=== PATIENT | male | born 1965 | race Caucasian/White ===

== ENCOUNTER 2023-02-16 16:11 | Emergency (ER) | payer MEDICAID ==
[~2023-02-16] VITALS: Ht 182.9 cm; Wt 68.2 kg
[~2023-02-16 16:11] MED LIST: RANI-648 PO
[2023-02-16 16:14] VITALS: BP 120/76; PULSE 67; RESP 18; TEMP 97.9; O2SAT 99
--- NOTE | 2023-02-16 16:29 | NUR ---
Incident reported to [facility] dispatch. Officer being sent out to speak with patient. no case number given
--- NOTE | 2023-02-16 17:10 | NUR ---
[facility] log number [id number]
[2023-02-16] MEDS ORDERED: bacitracin 15gm ointment TP ONE (17:15)
[2023-02-16] MEDS ORDERED: TETanus/Pertussis (Acell)/Diphther VAC/PF (Tdap-Adult) 0.5ml syringe IMVAC ONE (17:15)
[2023-02-16 17:23] LABS: ALBUMIN 3.5 G/DL (3.4-5.0); ANION GAP 7 (8-16); BLOOD UREA NITROGEN 21 MG/DL (7-18); BUN/CREATININE RATIO 16.9 (10.0-20.0); CALCIUM 9.3 MG/DL (8.5-10.1); CHLORIDE 104 MMOL/L (99-107); CREATININE 1.24 MG/DL (0.60-1.10); GLUCOSE 94 MG/DL (70-104); INR 1.1 INR; POTASSIUM 3.8 MMOL/L (3.5-5.1); PROTHROMBIN TIME 11.3 SECONDS (9.0-12.0); SODIUM 141 MMOL/L (135-145); eCRCL 65 ML/MIN; eGFR 61 ML/MIN
[2023-02-16 17:28] LABS: BASOPHILS # (AUTO) 0.1 X10'3 (0-0.2); EOSINOPHILS # (AUTO) 0.3 X10'3 (0-0.9); EOSINOPHILS % (AUTO) 4.8 % (0-6); HEMATOCRIT 42.2 % (42.0-52.0); HEMOGLOBIN 14.4 g/dl (14.0-17.9); LYMPHOCYTES % (AUTO) 18.7 % (21-51); MEAN CORPUSCULAR HEMOGLOBIN 30.7 PG (27.0-31.0); MEAN CORPUSCULAR HGB CONC 34.2 g/dL (33.0-36.5); MEAN CORPUSCULAR VOLUME 89.8 FL (78-98); MEAN PLATELET VOLUME 11.4 FL (7.4-10.4); MONOCYTES # (AUTO) 0.6 X10'3 (0-0.9); MONOCYTES % (AUTO) 11.9 % (2-12); NEUTROPHILS # (AUTO) 3.4 X10'3 (1.8-7.7); NEUTROPHILS % (AUTO) 63.6 % (42-75); PLATELET ESTIMATE DECREASED; RED CELL DISTRIBUTION WIDTH 14.9 % (11.5-14.5); WHITE BLOOD COUNT 5.4 X10'3 (4.5-11.0)
[2023-02-16 17:29] LABS: LARGE PLATELETS MODERATE; POIKILOCYTOSIS FEW
[2023-02-16 17:33] LABS: PLATELET COUNT 11 X10'3 (140-440)
== END 2023-02-16 18:34 | disposition home or self-care (01) ==
LOC: ER 16:12
DX: S06.0X9A Concussion with loss of consciousness of unspecified duration, initial encounter (principal); S50.812A Abrasion of left forearm, initial encounter; S00.83XA Contusion of other part of head, initial encounter; F15.90 Other stimulant use, unspecified, uncomplicated; Z88.8 Allergy status to other drugs, medicaments and biological substances; V89.2XXA Person injured in unspecified motor-vehicle accident, traffic, initial encounter; Y93.89 Activity, other specified; Y92.89 Other specified places as the place of occurrence of the external cause; Y99.8 Other external cause status
CPT/HCPCS: 36415; 70450; 80048; 85008; 85025; 85610; 90471; 90715; 99285

== ENCOUNTER 2023-05-04 13:29 | Inpatient (IN) | payer MEDICAID ==
[~2023-05-04] VITALS: Ht 182.9 cm; Wt 68.0 kg
[2023-05-04] MEDS ORDERED: normal saline 1000ML IV soln IVB ONE (14:40)
[2023-05-04 14:57] LABS: INR 1.1 INR; PROTHROMBIN TIME 11.8 SECONDS (9.0-12.0)
[2023-05-04] MEDS ORDERED: ringers solution, lacted 1,000 ML IV ONE ×2 (15:05→15:25)
[2023-05-04] MEDS ORDERED: CefTRIAXone 2gm/D5W 50ml BAG 50 ML IV ONE (15:05)
[2023-05-04] MEDS ORDERED: azithromycin/NS 500mg/250ml 250 ML IV ONE (15:05)
[2023-05-04 15:08] LABS: ALANINE AMINOTRANSFERASE 28 U/L (12-78); ALBUMIN 2.8 G/DL (3.4-5.0); ALBUMIN/GLOBULIN RATIO 0.6 (1.1-1.5); ALKALINE PHOSPHATASE 71 IU/L (46-116); ANION GAP 8 (8-16); ASPARTATE AMINO TRANSFERASE 27 U/L (10-37); BILIRUBIN,TOTAL 1.3 MG/DL (0.1-1.0); BLOOD UREA NITROGEN 51 MG/DL (7-18); BUN/CREATININE RATIO 25.2 (10.0-20.0); CALCIUM 9.7 MG/DL (8.5-10.1); CHLORIDE 89 MMOL/L (99-107); CREATININE 2.02 MG/DL (0.60-1.10); GLUCOSE 99 MG/DL (70-104); POTASSIUM 4.6 MMOL/L (3.5-5.1); SODIUM 124 MMOL/L (135-145); TOTAL CARBON DIOXIDE 27.4 MMOL/L (24-32); TOTAL PROTEIN 7.6 G/DL (6.4-8.2); eCRCL 40 ML/MIN; eGFR 34 ML/MIN
[2023-05-04 15:15] LABS: PRO BRAIN NATRIURETIC PEPTIDE 982 PG/ML (0-125)
[2023-05-04] MEDS ORDERED: iohexol 350MG/ML 100ml bottle IV ONE (15:16)
[2023-05-04] MEDS ORDERED: MEROPENEM 1GM/NS 100ML IVPB 100 ML IV ONE (15:45)
[2023-05-04] MEDS ORDERED: ondansetron/PF 4mg/2ml inj IV ONE (15:55)
[2023-05-04 16:04] LABS: BILIRUBIN,URINE SMALL (Neg); CLARITY,URINE CLEAR (Clear); GLUCOSE, URINE NEGATIVE (Neg); KETONES,URINE NEGATIVE (Neg); LEUKOCYTE ESTERASE ,URINE NEGATIVE (Neg); NITRITES, URINE NEGATIVE (Neg); OCCULT BLOOD,URINE SMALL (Neg); PROTEIN,URINE 30 mg/dl (Neg)
[2023-05-04 16:11] LABS: COLOR,URINE ORANGE (Yellow); UA COLLECTION TYPE FOLEY CATH
[2023-05-04 16:13] LABS: URINE AMPHETAMINE SCREEN POSITIVE (Neg); URINE BARBITUATE SCREEN NEGATIVE (Neg); URINE BENZODIAZEPINES SCREEN NEGATIVE (Neg); URINE CANNABINOID SCREEN NEGATIVE (Neg); URINE COCAINE SCREEN NEGATIVE (Neg); URINE METHADONE SCREEN NEGATIVE (Neg); URINE OPIATE SCREEN NEGATIVE (Neg); URINE PHENCYCLIDINE SCREEN NEGATIVE (Neg)
[2023-05-04 16:18] LABS: BACTERIA,URINE FEW /HPF (Neg); FINE GRANULAR CAST 0-3 /LPF (NEGATIVE); HYALINE CASTS 0-3 /LPF (NEGATIVE); MUCUS STRANDS MODERATE /LPF (Neg); SQUAMOUS EPITHELIAL CELL,UR MODERATE /LPF (FEW); WBC,URINE 0-4 /HPF (0-4)
[2023-05-04 16:20] LABS: COARSE GRANULAR CAST 0-3 /LPF (NEGATIVE)
[2023-05-04 16:32] LABS: EOSINOPHILS % (AUTO) 0 % (0-6); MEAN CORPUSCULAR HEMOGLOBIN 30.2 PG (27.0-31.0); MONOCYTES # (AUTO) 0.6 X10'3 (0-0.9); NEUTROPHILS # (AUTO) 18.3 X10'3 (1.8-7.7)
[2023-05-04 16:33] LABS: BASOPHILS % (AUTO) 0.1 % (0-1); HEMATOCRIT 38.7 % (42.0-52.0); HEMOGLOBIN 13.2 g/dl (14.0-17.9); LYMPHOCYTES # (AUTO) 0.3 X10'3 (1.1-4.8); LYMPHOCYTES % (AUTO) 1.7 % (21-51); MEAN CORPUSCULAR VOLUME 89.1 FL (78-98); MEAN PLATELET VOLUME 11.6 FL (7.4-10.4); NEUTROPHILS % (AUTO) 95.2 % (42-75); RED BLOOD COUNT 4.35 X10'6 (4.70-6.10); WHITE BLOOD COUNT 19.2 X10'3 (4.5-11.0)
[2023-05-04 16:42] LABS: APTT 39 SECONDS (22-32)
[2023-05-04 16:47] LABS: MAGNESIUM 1.6 MG/DL (1.5-2.4)
[2023-05-04 17:04] LABS: GIANT PLATELET FEW; LARGE PLATELETS MODERATE; PLATELET ESTIMATE DECREASED; TOTAL CELLS COUNTED 100
[2023-05-04 17:07] LABS: BURR CELLS 1+
--- NOTE | 2023-05-04 17:37 | NUR ---
Pt has bruising extensive bruising to tongue, reports biting in sleep
[2023-05-04] MEDS ORDERED: magnesium 2GM in 50ml NS 50 ML IV PRN (17:50)
[2023-05-04] MEDS ORDERED: normal saline 1000ml 1,000 ML IV ONE ×2 (17:50)
[2023-05-04] MEDS ORDERED: magnesium 4gm in 100ml NS 100 ML IV PRN (17:50)
[2023-05-04] MEDS ORDERED: acetaminophen 650mg rectal suppository RC PRN (17:50)
[2023-05-04] MEDS ORDERED: acetaminophen 325mg tablet PO PRN ×2 (17:50)
[2023-05-04] MEDS ORDERED: bisacodyl 10mg suppository rectal RC PRN (17:50)
[2023-05-04] MEDS ORDERED: morphine 2 MG/ML inj. syringe IV PRN ×2 (17:50)
[2023-05-04] MEDS ORDERED: potassium Cl 40MEQ/1/2NS 520ml 520 ML IV PRN (17:50)
[2023-05-04] MEDS ORDERED: ondansetron/PF 4mg/2ml inj IV PRN (17:50)
[2023-05-04] MEDS ORDERED: mag hydrox/Alum hydrox/simeth 30ml oral suspension PO PRN (17:50)
[2023-05-04] MEDS ORDERED: nicotine 14mg patch - 24hr TD SCH (18:35)
[2023-05-04] MEDS ORDERED: pantoprazole 40mg Tablet.DR PO ONE (19:00)
[2023-05-04] MEDS ORDERED: vancomycin 1,750 MG in NS 350ml IV soln IV ONE (19:10)
--- NOTE | 2023-05-04 19:26 | NUR ---
Discussed with patient that provider has ordered FFP due to platelets 11. Patient requests platelets be hand counted prior to agreement to FFP transfusion. Verbalized understanding. Called and spoke with Lacho in lab who agreed to count. Patient notified, verbalized understanding.
[2023-05-04 19:54] LABS: CREATINE KINASE 139 U/L (39-308)
[2023-05-04] MEDS: K and/or MAG REPLACEMENT MC SCH (20:00)
[2023-05-04] MEDS ORDERED: VANCOmycin 1250MG/NS 250ml Bag 250 ML IV SCH (20:00)
[2023-05-04] MEDS: docusate sod 100mg capsule PO SCH (20:00)
--- NOTE | 2023-05-04 20:10 | NUR ---
Discussed FFP infusion with patient after manual count of 27.5, patient states he feels comfortable with his platelets at this level (this is his baseline) and is refusing FFP transfusion. Called and updated Dr. De La Cruz, verbalized understanding.
--- NOTE | 2023-05-04 22:37 | NUR ---
Pt does not have a diet in and is requesting food. notified new order for reg diet ordered.
[2023-05-05] MEDS ORDERED: piperacillin/tazo 3.375gm/50ml 50 ML IV SCH
[2023-05-05 03:44] LABS: EOSINOPHILS # (AUTO) 0.1 X10'3 (0-0.9); HEMOGLOBIN 13.6 g/dl (14.0-17.9); MEAN CORPUSCULAR HEMOGLOBIN 30.1 PG (27.0-31.0); MEAN CORPUSCULAR HGB CONC 33.7 g/dL (33.0-36.5); MONOCYTES # (AUTO) 0.6 X10'3 (0-0.9); NEUTROPHILS # (AUTO) 15.7 X10'3 (1.8-7.7); RED BLOOD COUNT 4.51 X10'6 (4.70-6.10); WHITE BLOOD COUNT 16.7 X10'3 (4.5-11.0)
[2023-05-05 03:45] LABS: BASOPHILS % (AUTO) 0 % (0-1); EOSINOPHILS % (AUTO) 0.4 % (0-6); HEMATOCRIT 40.2 % (42.0-52.0); LYMPHOCYTES # (AUTO) 0.4 X10'3 (1.1-4.8); LYMPHOCYTES % (AUTO) 2.2 % (21-51); MEAN CORPUSCULAR VOLUME 89.1 FL (78-98); MEAN PLATELET VOLUME 12.5 FL (7.4-10.4); MONOCYTES % (AUTO) 3.4 % (2-12); RED CELL DISTRIBUTION WIDTH 13.8 % (11.5-14.5)
[2023-05-05 04:52] LABS: ALANINE AMINOTRANSFERASE 20 U/L (12-78); ALBUMIN 2.1 G/DL (3.4-5.0); ALBUMIN/GLOBULIN RATIO 0.6 (1.1-1.5); ALKALINE PHOSPHATASE 111 IU/L (46-116); ANION GAP 9 (8-16); ASPARTATE AMINO TRANSFERASE 26 U/L (10-37); BILIRUBIN,TOTAL 0.8 MG/DL (0.1-1.0); BLOOD UREA NITROGEN 46 MG/DL (7-18); BUN/CREATININE RATIO 28.9 (10.0-20.0); CALCIUM 8.8 MG/DL (8.5-10.1); CHLORIDE 95 MMOL/L (99-107); CREATININE 1.59 MG/DL (0.60-1.10); GLUCOSE 104 MG/DL (70-104); MAGNESIUM 1.8 MG/DL (1.5-2.4); POTASSIUM 3.8 MMOL/L (3.5-5.1); SODIUM 129 MMOL/L (135-145); TOTAL CARBON DIOXIDE 25.4 MMOL/L (24-32); TOTAL PROTEIN 5.7 G/DL (6.4-8.2); eCRCL 50 ML/MIN; eGFR 45 ML/MIN
[2023-05-05 05:10] LABS: LACTATE DEHYDROGENASE 368 U/L (85-227)
[2023-05-05 05:15] VITALS: TEMP 98.9
[2023-05-05 06:48] VITALS: BP 96/66; PULSE 73; RESP 16; O2SAT 96
--- NOTE | 2023-05-05 06:50 | NUR ---
PT IN ROOM A/O X4 IN NAD. WILL CONTINUE TO MONITOR.
[2023-05-05] MEDS: K and/or MAG REPLACEMENT MC SCH (08:00)
[2023-05-05] MEDS: docusate sod 100mg capsule PO SCH (08:00)
--- NOTE | 2023-05-05 08:50 | NUR ---
WENT TO MEDICATE PT, PT NOT IN ROOM. PT HAS BEEN GOING TO BR ON HIS OWN, WILL RECHECK
--- NOTE | 2023-05-05 09:40 | NUR ---
PT NOT IN ROOM, +GOWN SIGN, PT'S PHONE IS NOT AT BS. CHECKED ROOM AND AND TRASH FOR IV CATH....NOT FOUND. HOSPITALIST AND CHG RN NOTIFIED.
--- NOTE | 2023-05-05 10:12 | NUR ---
BREAKING PRIMARY RN RIC ,RESIDENT ESCOBAR GARCIA AT [facility]URSES STATION INFORMED THAT PT IS ELOPED WITH IV ,CHECKED THE ROOM WITH RESIDENT .MADE CHARGE NURSE AMI AWARE TOO.
--- NOTE | 2023-05-05 10:28 | NUR ---
[facility]KA CALLED AND NOTIFIED OF PT ELOPEMENT WITH PIV IN PLACE
[2023-05-05 15:57] LABS: PLATELET COUNT 11 X10'3 (140-440)
[2023-05-05 15:58] LABS: PLATELET COUNT 13 X10'3 (140-440)
[2023-05-05] MEDS ORDERED: VANCOMYCIN 750MG IV in NS 250 ML IV SCH (20:00)
[2023-05-05] MEDS ORDERED: vancomycin/NS 1 GM ADD-VANTAGE 250 ML X 1 DOSE IV SCH (20:00)
[2023-05-06] MEDS ORDERED: pantoprazole 40mg Tablet.DR PO SCH (07:30)
[2023-05-07] MEDS ORDERED: VANCOMYCIN LEVEL IV ONE (19:30)
== END 2023-05-05 11:00 | disposition left against medical advice (07) | DRG 720 ==
LOC: ER 13:29 → ED HOLD 18:20
PROVIDERS: ADMIT Family Medicine; ATTEND Family Medicine
PROC: B32T1ZZ Computerized Tomography (CT Scan) of Left Pulmonary Artery using Low Osmolar Contrast (ICD-10-PCS; principal; 2023-05-04)
PROC: B3201ZZ Computerized Tomography (CT Scan) of Thoracic Aorta using Low Osmolar Contrast (ICD-10-PCS; 2023-05-04)
PROC: B32S1ZZ Computerized Tomography (CT Scan) of Right Pulmonary Artery using Low Osmolar Contrast (ICD-10-PCS; 2023-05-04)
DX: A41.9 Sepsis, unspecified organism (principal); N17.0 Acute kidney failure with tubular necrosis; R65.21 Severe sepsis with septic shock; J18.9 Pneumonia, unspecified organism; D69.6 Thrombocytopenia, unspecified; I95.9 Hypotension, unspecified; D72.0 Genetic anomalies of leukocytes; F15.11 Other stimulant abuse, in remission; Z53.21 Procedure and treatment not carried out due to patient leaving prior to being seen by health care provider; F10.10 Alcohol abuse, uncomplicated; Z20.822 Contact with and (suspected) exposure to COVID-19; D64.9 Anemia, unspecified; Z87.891 Personal history of nicotine dependence; Z79.899 Other long term (current) drug therapy
CPT/HCPCS: 36415; 71045; 71275; 80053; 80305; 81001; 82550; 83605; 83615; 83735; 83880; 84145; 84484; 85007; 85025; 85610; 85651; 85730; 86885; 86900; 86901; 87040; 87502; 87503; 87811; 99285; C1758; G0378; J2185; J2543; J3370; J3490; J7030; J7040; J7120; Q9967

== ENCOUNTER 2024-08-28 22:47 | Emergency (ER) | payer MEDICAID ==
[~2024-08-28] VITALS: Ht 182.9 cm; Wt 70.5 kg
[2024-08-28 22:52] VITALS: TEMP 98.7
[2024-08-28] MEDS ORDERED: HYDR-3965 PO (23:17)
[2024-08-28] MEDS: HYDROcodone/acetaminophen 10/325mg tab PO ONE (23:24)
[2024-08-28 23:44] VITALS: BP 148/73; PULSE 77; RESP 18; O2SAT 97
== END 2024-08-28 23:48 | disposition home or self-care (01) ==
LOC: ER 22:47
DX: S52.611A Displaced fracture of right ulna styloid process, initial encounter for closed fracture (principal); F15.90 Other stimulant use, unspecified, uncomplicated; Z72.89 Other problems related to lifestyle; Z79.899 Other long term (current) drug therapy; W18.09XA Striking against other object with subsequent fall, initial encounter; Y93.89 Activity, other specified; Y92.89 Other specified places as the place of occurrence of the external cause; Y99.8 Other external cause status
CPT/HCPCS: 29125; 73110; 99284